=== PATIENT | male | born 1950 | race Two or more races ===

== ENCOUNTER → 2019-11-02 | Outpatient (CLI) | payer MEDICARE, OTHER ==
[2019-11-02 13:12] LABS: FREE T4 (FREE THYROXINE) 0.97 ng/dL (0.78-2.19)
[2019-11-02 13:26] LABS: THYROID STIMULATING HORMONE 1.98 uIU/mL (0.47-4.68)
== END ==
LOC: OD 11:48
PROVIDERS: ATTEND Otolaryngology
DX: E04.1 Nontoxic single thyroid nodule (principal)
CPT/HCPCS: 36415; 82306; 83970; 84439; 84443